=== PATIENT | female | born 1990 | race African-American/Black ===

== ENCOUNTER → 2018-11-16 16:21 | Outpatient (CLI) | payer OTHER, SELFPAY ==
--- NOTE | 2018-11-16 16:25 | DI.MRI.S_ITS ---
PROCEDURE: MR HEAD/BRAIN WO/W CON INDICATIONS: ABNORMAL FINDINGS ON DIAGNOSTIC IMAGING, MIGRAINES. TECHNIQUE: Noncontrast axial T1 spin echo, axial T2 fast spin echo, sagittal and axial FLAIR, coronal T2 fast spin echo, axial gradient echo, axial diffusion and ADC through the brain. After the administration of contrast, axial and coronal 3D VIBE or T1 spin echo with fat saturation through the brain. COMPARISON: Outside Facility, RG, MRI HEAD W/O CONTRAST, 12/22/2017, 15:15. Outside Facility, RG, MRI HEAD W/WO CONTRAST, 01/15/2018, 19:33. FINDINGS: Image quality: Excellent. CSF Spaces: Basal cisterns are patent. No extra-axial fluid collections. Ventricles are normal in size and shape. Brain: No midline shift. No intracranial bleeds or masses. No abnormal intracranial enhancement. The brainstem appears normal. Diffusion-weighted images demonstrate no acute ischemic insults. No chronic ischemic insults. Normal intravascular flow voids are present. Skull and face: Calvarial marrow is normal in signal. Orbits appear normal. Sinuses: Sinuses and mastoids appear clear. IMPRESSION: Normal examination, no area of the prior ischemic injury or trauma is suspected. No contrast enhancing abnormality found. Flair imaging pulse sequence appears normal bilaterally, without evidence of underlying multiple sclerosis or other white matter disease process. The ventricles are normal in size, and overall the study does not identify a source of current symptoms. Dictated by: Colby Escalante M.D. on 11/21/2018 at 15:17 Approved by: Colby Escalante M.D. on 11/21/2018 at 15:20
== END ==
PROVIDERS: Visit Provider Registered Nurse Diabetes Educator
DX: G43.909 Migraine, unspecified, not intractable, without status migrainosus (principal); R93.0 Abnormal findings on diagnostic imaging of skull and head, not elsewhere classified
CPT/HCPCS: 70553; A9579

== ENCOUNTER 2019-02-24 15:03 | Emergency (ER) | payer OTHER, SELFPAY ==
--- NOTE | 2019-02-24 15:07 | ED.LOWEXIN ---
HPI - Extremity Injury (Lower) <Chloe Quach PA-C - Last Filed: 02/24/19 16:54> General Chief Complaint: Extremity Injury, Lower Stated Complaint: left knee pain Time Seen by Provider: 02/24/19 15:07 Source: patient Mode of arrival: ambulatory Limitations: no limitations History of Present Illness HPI Narrative: This healthy 29-year-old female comes to ED secondary to left knee pain. She was running fast playing kickball when she slid to a stop and had pivoted backwards but pitched forward onto the left knee. She states that she had pain right away, has not noted swelling. She does not have pain when not bearing weight. She cannot tell whether any instability. She denies hitting her head, LOC, or other known injury. She did note some pain in the left wrist/forearm area when pushing off of her fingers to move on the gurney, not consistent. She denies possibility of , no male partners. Related Data Allergies Allergy/AdvReac Type Severity Reaction Status Date / Time Penicillins Allergy Intermediate Hives Verified 02/24/19 15:14 Review of Systems <Chloe Quach PA-C - Last Filed: 02/24/19 16:54> Review of Systems ROS Unobtainable: All systems reviewed & are unremarkable except as noted in HPI and below PFSH <Chloe Quach PA-C - Last Filed: 02/24/19 16:54> Medical History (Updated 02/24/19 @ 16:04 by Chloe Quach PA-C) Chronic insomnia (Chronic) Anemia (Chronic) Migraine headache (Chronic) Surgical History (Updated 02/24/19 @ 15:29 by Chloe Quach PA-C) No history of previous surgery (Chronic) Social History Smoking Status: Never smoker Social History Smoking Status: Never smoker Exam <Chloe Quach PA-C - Last Filed: 02/24/19 16:54> Narrative Exam Narrative: GENERAL APPEARANCE: Patient sitting comfortably, in no distress. LUNGS: Clear to auscultation bilaterally. HEART: Rate and rhythm regular without murmur, normal S1 and S2, no S3 or S4. MUSCULOSKELETAL: Left knee no effusion, mild tenderness to palpation medial to the patella, no tenderness elsewhere over the bony prominences or soft tissue. She is able to fully extend with some tenderness. Able to flex to 90?. No clear laxity been unable to tolerate full stress testing secondary to tenderness. No tenderness about the lower leg or ankle. No point tenderness over the left hand, wrist, or forearm pain. Minimal tenderness over the left elbow ulnar groove that is not reproducible. Full range of motion throughout the left upper extremity without tenderness. NEUROVASCULAR: Left lower extremity sensation grossly intact, foot is warm, PT and DP pulses 2+ Initial Vital Signs Initial Vital Signs: Vital Signs Temperature 98.3 F 02/24/19 15:10 Pulse Rate 96 H 02/24/19 15:10 Respiratory Rate 18 02/24/19 15:10 Blood Pressure 135/91 H 02/24/19 15:10 Pulse Oximetry 100 02/24/19 15:10 <DO Leigha Issa Last Filed: 02/24/19 17:18> Initial Vital Signs Initial Vital Signs: Vital Signs Temperature 98.3 F 02/24/19 15:10 Pulse Rate 96 H 02/24/19 15:10 Respiratory Rate 18 02/24/19 15:10 Blood Pressure 135/91 H 02/24/19 15:10 Pulse Oximetry 100 02/24/19 15:10 Course <Chloe Quach PA-C - Last Filed: 02/24/19 16:54> Orders Ordered: ED Orders 02/24/19 15:15 XR knee LT 3V Stat Vital Signs - 8 hr 02/24/19 15:10 02/24/19 16:26 Temperature 98.3 F Pulse Rate 96 H 79 Respiratory Rate 18 16 Blood Pressure 135/91 H Blood Pressure [Left Arm] 119/80 Pulse Oximetry 100 100 <DO Leigha Issa Last Filed: 02/24/19 17:18> Orders Ordered: ED Orders 02/24/19 15:15 XR knee LT 3V Stat Vital Signs - 8 hr 02/24/19 15:10 02/24/19 16:26 Temperature 98.3 F Pulse Rate 96 H 79 Respiratory Rate 18 16 Blood Pressure 135/91 H Blood Pressure [Left Arm] 119/80 Pulse Oximetry 100 100 MDM - Extremity Injury (Lower) <Chloe Quach PA-C - Last Filed: 02/24/19 16:54> Imaging Data knee: Radiologist's impression: [address] [address] XRay Report Signed Patient: YEE OVIEDO#: [id number] : 1990Acct:[id number] Age/Sex: 29 / FDate of Service: 02/24/19 Loc: ED Accession Number: [id number] Procedure: XR knee LT 3V Ordering Provider: Chloe Quach P.A-C PROCEDURE: XR KNEE LT 3V INDICATIONS: fall, pain (medial) TECHNIQUE: 3 views of the knee were acquired. COMPARISON: None. FINDINGS: Bones: No fractures or dislocations. No suspicious bony lesions. Soft tissues: No joint effusion. No suspicious soft tissue calcifications. IMPRESSION: No acute radiographic findings. If pain persists, repeat imaging in 5-7 days is recommended to exclude occult fracture at the time of the study. Dictated by: Lydia Gregorio M.D. on 02/24/2019 at 14:31 Approved by: Lydia Gregorio M.D. on 02/24/2019 at 14:32 Discharge Plan Departure Patient Disposition: Home Clinical Impression: Internal derangement of knee Qualifiers: Laterality: left Qualified Code(s): M23.92 - Unspecified internal derangement of left knee Discharge Date/Time: 02/24/19 16:31 Interventions: ED Discharge Assessment Last Done: 02/24/19 16:31 Instructions: DI for Knee Sprain, DI for Knee Pain Activity Restrictions/Additional Instructions: Please return as we discussed if you have any acutely worsening symptoms. Otherwise, use the knee immobilizer to help with pain and stability when you are walking. Gentle walking on flat ground is okay as you tolerate, but when you are sitting rest the knee, elevate. Continue ice as needed. Continue ibuprofen, 800 mg every 8 hours to help with pain and swelling and add Tylenol in addition as needed. Please see your PCP in the next few days for reassessment to evaluate your progress and determine whether any further testing or referral are needed. I think that you have a soft tissue injury to tendon or ligament which can be a simple sprain that may heal on its own, or sometimes these require further treatment with PT or orthopedics for more complex tears. Referrals: Gregorio Roger, EMPLOYMENT ASSISTANT [Non-Staff] - Stand Alone Forms: Work Release Note <Misha Harden DO - Last Filed: 02/24/19 17:18> Cosign ED Attending Cosjimenezature Attestation: I was immediately available in the department for consultation. Documentation has been reviewed. I agree with assessment and plan.
[2019-02-24 15:10] VITALS: BP 135/91; PULSE 96; RESP 18; TEMP 36.8; O2SAT 100; BMI 33.8
--- NOTE | 2019-02-24 15:15 | DI.RAD.S_ITS ---
PROCEDURE: XR KNEE LT 3V INDICATIONS: fall, pain (medial) TECHNIQUE: 3 views of the knee were acquired. COMPARISON: None. FINDINGS: Bones: No fractures or dislocations. No suspicious bony lesions. Soft tissues: No joint effusion. No suspicious soft tissue calcifications. IMPRESSION: No acute radiographic findings. If pain persists, repeat imaging in 5-7 days is recommended to exclude occult fracture at the time of the study. Dictated by: Lydia Gregorio M.D. on 02/24/2019 at 14:31 Approved by: Lydia Gregorio M.D. on 02/24/2019 at 14:32
--- NOTE | 2019-02-24 15:24 | ED_ITS ---
HPI - Extremity Injury (Lower) <Chloe Quach PA-C - Last Filed: 02/24/19 16:54> General Chief Complaint: Extremity Injury, Lower Stated Complaint: left knee pain Time Seen by Provider: 02/24/19 15:07 Source: patient Mode of arrival: ambulatory Limitations: no limitations History of Present Illness HPI Narrative: This healthy 29-year-old female comes to ED secondary to left knee pain. She was running fast playing kickball when she slid to a stop and had pivoted backwards but pitched forward onto the left knee. She states that she had pain right away, has not noted swelling. She does not have pain when not bearing weight. She cannot tell whether any instability. She denies hitting her head, LOC, or other known injury. She did note some pain in the left wrist/forearm area when pushing off of her fingers to move on the gurney, not consistent. She denies possibility of , no male partners. Related Data Allergies Allergy/AdvReac Type Severity Reaction Status Date / Time Penicillins Allergy Intermediate Hives Verified 02/24/19 15:14 Review of Systems <Chloe Quach PA-C - Last Filed: 02/24/19 16:54> Review of Systems ROS Unobtainable: All systems reviewed & are unremarkable except as noted in HPI and below PFSH <Chloe Quach PA-C - Last Filed: 02/24/19 16:54> Medical History (Updated 02/24/19 @ 16:04 by Chloe Quach PA-C) Chronic insomnia (Chronic) Anemia (Chronic) Migraine headache (Chronic) Surgical History (Updated 02/24/19 @ 15:29 by Chloe Quach PA-C) No history of previous surgery (Chronic) Social History Smoking Status: Never smoker Social History Smoking Status: Never smoker Exam <Chloe Quach PA-C - Last Filed: 02/24/19 16:54> Narrative Exam Narrative: GENERAL APPEARANCE: Patient sitting comfortably, in no distress. LUNGS: Clear to auscultation bilaterally. HEART: Rate and rhythm regular without murmur, normal S1 and S2, no S3 or S4. MUSCULOSKELETAL: Left knee no effusion, mild tenderness to palpation medial to the patella, no tenderness elsewhere over the bony prominences or soft tissue. She is able to fully extend with some tenderness. Able to flex to 90?. No clear laxity been unable to tolerate full stress testing secondary to tenderness. No tenderness about the lower leg or ankle. No point tenderness over the left hand, wrist, or forearm pain. Minimal tenderness over the left elbow ulnar groove that is not reproducible. Full range of motion throughout the left upper extremity without tenderness. NEUROVASCULAR: Left lower extremity sensation grossly intact, foot is warm, PT and DP pulses 2+ Initial Vital Signs Initial Vital Signs: Vital Signs Temperature 98.3 F 02/24/19 15:10 Pulse Rate 96 H 02/24/19 15:10 Respiratory Rate 18 02/24/19 15:10 Blood Pressure 135/91 H 02/24/19 15:10 Pulse Oximetry 100 02/24/19 15:10 <DO Leigha Issa Last Filed: 02/24/19 17:18> Initial Vital Signs Initial Vital Signs: Vital Signs Temperature 98.3 F 02/24/19 15:10 Pulse Rate 96 H 02/24/19 15:10 Respiratory Rate 18 02/24/19 15:10 Blood Pressure 135/91 H 02/24/19 15:10 Pulse Oximetry 100 02/24/19 15:10 Course <Chloe Quach PA-C - Last Filed: 02/24/19 16:54> Orders Ordered: ED Orders 02/24/19 15:15 XR knee LT 3V Stat Vital Signs - 8 hr 02/24/19 15:10 02/24/19 16:26 Temperature 98.3 F Pulse Rate 96 H 79 Respiratory Rate 18 16 Blood Pressure 135/91 H Blood Pressure [Left Arm] 119/80 Pulse Oximetry 100 100 <DO Leigha Issa Last Filed: 02/24/19 17:18> Orders Ordered: ED Orders 02/24/19 15:15 XR knee LT 3V Stat Vital Signs - 8 hr 02/24/19 15:10 02/24/19 16:26 Temperature 98.3 F Pulse Rate 96 H 79 Respiratory Rate 18 16 Blood Pressure 135/91 H Blood Pressure [Left Arm] 119/80 Pulse Oximetry 100 100 MDM - Extremity Injury (Lower) <Chloe Quach PA-C - Last Filed: 02/24/19 16:54> Imaging Data knee: Radiologist's impression: [address] [address] XRay Report Signed Patient: YEE OVIEDO#: [id number] : 1990Acct:[id number] Age/Sex: 29 / FDate of Service: 02/24/19 Loc: ED Accession Number: [id number] Procedure: XR knee LT 3V Ordering Provider: Chloe Quach P.A-C PROCEDURE: XR KNEE LT 3V INDICATIONS: fall, pain (medial) TECHNIQUE: 3 views of the knee were acquired. COMPARISON: None. FINDINGS: Bones: No fractures or dislocations. No suspicious bony lesions. Soft tissues: No joint effusion. No suspicious soft tissue calcifications. IMPRESSION: No acute radiographic findings. If pain persists, repeat imaging in 5-7 days is recommended to exclude occult fracture at the time of the study. Dictated by: Lydia Gregorio M.D. on 02/24/2019 at 14:31 Approved by: Lydia Gregorio M.D. on 02/24/2019 at 14:32 Discharge Plan Departure Patient Disposition: Home Clinical Impression: Internal derangement of knee Qualifiers: Laterality: left Qualified Code(s): M23.92 - Unspecified internal derangement of left knee Discharge Date/Time: 02/24/19 16:31 Interventions: ED Discharge Assessment Last Done: 02/24/19 16:31 Instructions: DI for Knee Sprain, DI for Knee Pain Activity Restrictions/Additional Instructions: Please return as we discussed if you have any acutely worsening symptoms. Otherwise, use the knee immobilizer to help with pain and stability when you are walking. Gentle walking on flat ground is okay as you tolerate, but when you are sitting rest the knee, elevate. Continue ice as needed. Continue ibuprofen, 800 mg every 8 hours to help with pain and swelling and add Tylenol in addition as needed. Please see your PCP in the next few days for reassessment to evaluate your progress and determine whether any further testing or referral are needed. I think that you have a soft tissue injury to tendon or ligament which can be a simple sprain that may heal on its own, or sometimes these require further treatment with PT or orthopedics for more complex tears. Referrals: Gregorio Roger, [employer] PA[employer]KER [Non-Staff] - Stand Alone Forms: Work Release Note <Misha Harden DO - Last Filed: 02/24/19 17:18> Cosign ED Attending Cosjimenezature Attestation: I was immediately available in the department for consultation. Documentation has been reviewed. I agree with assessment and plan.
[2019-02-24 16:26] VITALS: BP 119/80; PULSE 79; RESP 16; O2SAT 100
== END 2019-02-24 16:31 | disposition home or self-care (01) ==
PROVIDERS: Emergency Provider Internal Medicine
DX: M23.92 Unspecified internal derangement of left knee (principal); W19.XXXA Unspecified fall, initial encounter; Y93.69 Activity, other involving other sports and athletics played as a team or group
CPT/HCPCS: 73562; 99283

== ENCOUNTER 2020-01-05 01:49 | Emergency (ER) | payer OTHER, SELFPAY ==
[2020-01-05 01:59] VITALS: BP 99/69; PULSE 114; RESP 19; TEMP 36.9; O2SAT 100; BMI 33.6
--- NOTE | 2020-01-05 02:00 | ED.GENADULT ---
HPI - General Adult General Chief complaint: Toxicology Problem Stated complaint: vomiting since yesterday Time Seen by Provider: 01/05/20 02:00 History of Present Illness HPI narrative: 29-year-old woman with history of migraine headaches who was celebrating her birthday coming up in 2 days with 8 shots of Tequila and 2 margaritas. She began throwing up shortly after consuming alcohol and is continued to vomit and have dry heaves for the last 6 hours. There has not been no blood in the emesis and no diarrhea. She has not been ill recently. She does not typically drink much alcohol. Denies alcohol marijuana opiates methamphetamine and cocaine. Related Data Home Medications Medication Instructions Recorded Confirmed amitriptyline 01/05/20 Allergies Allergy/AdvReac Type Severity Reaction Status Date / Time Penicillins Allergy Intermediate Hives Verified 01/05/20 02:03 Review of Systems Review of Systems Narrative: Review of systems is limited by the patient's medical condition however her notes that she has not had fevers, cough, chills, abdominal pain, chest pain, palpitations, lower extremity edema, skin rashes or unexpected weight changes recently. Patient History Medical History Anemia (Chronic) Chronic insomnia (Chronic) Migraine headache (Chronic) Surgical History No history of previous surgery (Chronic) Social History Smoking Status: Never smoker Smoking Status: Never smoker alcohol intake frequency: a few times a month Substance Use Type: does not use Exam Narrative Exam Narrative: General: Healthy appearing, continuing to vomit throughout our exam and history taking. Well-nourished well-developed HEENT: Moist mucous membranes, normal sclera with reactive pupils, Neck: supple Respiratory: Lungs are clear to auscultation, no wheezing no rales no rhonchi. Full and symmetrical air movement Cardiac: Mild tachycardia with Regular rate and rhythm no murmurs no bruits Abdomen: Soft nontender good bowel tones, no flank pain Skin: Warm and dry, no rashes Neurologic: Grossly neurologically intact with no obvious asymmetries or abnormalities Extremities: No trauma, well perfused Psych: Moderately intoxicated Initial Vital Signs Initial Vital Signs: Vital Signs Temperature 98.4 F 01/05/20 01:59 Pulse Rate 114 H 01/05/20 01:59 Respiratory Rate 19 01/05/20 01:59 Blood Pressure 99/69 01/05/20 01:59 Pulse Oximetry 100 01/05/20 01:59 Course Orders Ordered: ED Orders 01/05/20 02:05 Complete Blood Count AUTO DIFF Stat Comprehensive Metabolic Panel Stat Ethanol (ETOH) Stat Discontinued Medications Sodium Chloride (Normal Saline 0.9%) 1,000 mls @ 1,000 mls/hr IV BOLUS ONE Stop: 01/05/20 02:59 Last Infusion: 01/05/20 03:08 Dose: 0 mls/hr Documented by: Admin: 01/05/20 02:08 Dose: 1,000 mls/hr Documented by: ROLA Sodium Chloride (Normal Saline 0.9%) 1,000 mls @ 1,000 mls/hr IV BOLUS ONE Stop: 01/05/20 03:32 Last Admin: 01/05/20 02:54 Dose: 1,000 mls/hr Documented by: ROLA Metoclopramide HCl (Reglan) 10 mg IV NOW ONE Stop: 01/05/20 03:40 Last Admin: 01/05/20 03:43 Dose: 10 mg Documented by: EVIN Ondansetron HCl (Zofran) 4 mg IV NOW ONE Stop: 01/05/20 02:01 Last Admin: 01/05/20 02:08 Dose: 4 mg Documented by: ROLA Vital Signs Vital signs: Vital Signs - 8 hr 01/05/20 01:59 01/05/20 02:14 01/05/20 02:38 Temperature 98.4 F Pulse Rate 114 H 94 H 101 H Respiratory Rate 19 18 15 Blood Pressure 99/69 Blood Pressure [Left Arm] 116/67 Blood Pressure [Left Wrist] 125/76 Pulse Oximetry 100 99 99 01/05/20 03:00 Temperature Pulse Rate Respiratory Rate Blood Pressure Blood Pressure [Left Arm] 120/69 Blood Pressure [Left Wrist] Pulse Oximetry Medical Decision Making Medical Records Medical records reviewed: Yes I reviewed the patient's medical records. Lab Data Lab results reviewed: Yes I reviewed the patient's lab results. Result diagrams: 01/05/20 02:05 01/05/20 02:05 Labs: Lab Results 01/05/20 01/05/20 01/05/20 Range/Units 02:05 02:05 02:05 WBC 10.0 (4.5-11.0) X10^3/uL RBC 5.70 H (4.0-5.2) X10^6/uL Hgb 12.7 (12.0-16.0) g/dL Hct 39.4 (36-46) % MCV 69.1 L (80-100) fL MCH 22.3 L (26-34) PG MCHC 32.3 (30-36) % RDW 14.4 (11.6-14.8) % Plt Count 222 (150-400) X10^3/uL Neut % (Auto) 73.9 (50-75) % Lymph % (Auto) 20.1 L (25-40) % Mellette % (Auto) 5.5 (3-14) % Eos % (Auto) 0.1 L (2-4) % Baso % (Auto) 0.4 (0-2) % Neut # (Auto) 7400 H (3070-4982) /uL Lymph # (Auto) 2000 (2482-2618) /uL Mellette # (Auto) 500 (0-900) /uL Eos # (Auto) 0 (0-450) /uL Baso # (Auto) 0 (0-100) /uL RBC Morphology See below Microcytosis 1+ H Sodium 141 (137-145) mmol/L Potassium 4.2 (3.4-5.1) mmol/L Chloride 105 (98-107) mmol/L Carbon Dioxide 20 L (22-32) mmol/L BUN 8 (7-17) mg/dL Creatinine 0.84 (0.52-1.04) mg/dL Estimated GFR > 60.0 (>60) mL/min BUN/Creatinine Ratio 9.5 (6-22) Glucose 123 H (70-100) mg/dL Calcium 9.9 (8.4-10.2) mg/dL Total Bilirubin 0.5 (0.2-1.3) mg/dL AST 29 (14-36) IU/L ALT 22 (<35) IU/L Alkaline Phosphatase 80 (38-126) U/L Total Protein 8.7 H (6.3-8.2) g/dL Albumin 4.7 (3.5-5.0) g/dL Globulin 4.0 (1.7-4.1) g/dL Albumin/Globulin Ratio 1.2 (1.0-2.8) Ethyl Alcohol 55 H ( - 10) mg/dL MDM Narrative Medical decision making narrative: Significant persistent nausea and vomiting after too much alcohol. Alcohol level is only at 55. No significant abnormalities on lab work. Safe for home discharge once nausea is better controlled. Discharge Plan Departure Patient Disposition: Home Clinical Impression: Alcoholic intoxication Qualifiers: Complication of substance-induced condition: uncomplicated Qualified Code(s): F10.920 - Alcohol use, unspecified with intoxication, uncomplicated Instructions: DI for Alcohol Poisoning Activity Restrictions/Additional Instructions: Your alcohl level was 55 on arrival in the ER. The legal limit is 80. In the ER, you recieved a liter of fluid and nausea medication. This level of drinking is dangerous to your health. You got shaylee tonight and have friends that cared enough to make sure you were safe. Responsible drinking is considered 1 drink a day and no more than 7 drinks a week for women. More than this is considered risky drinking and can lead to alcohol use disorder. If you feel that you can not stop drinking or are concerned that you may have, or are developing, alcohol use disorder, please talk about this with your primary care doctor. I hope you feel better. Happy Birthday a day early! Prescriptions: No Action amitriptyline RF: 0
[2020-01-05] MEDS: SODIUM CHLORIDE 0.9% 1,000 ML 1000 ML IV ×2 (02:08→02:54)
[2020-01-05] MEDS: ONDANSETRON 4 MG/2 ML INJ IV (02:08)
[2020-01-05 02:11] LABS: Add Manual Diff / Slide Review NO; Basophils Absolute Auto 0 /uL (0-100); Basophils Percent Auto 0.4 % (0-2); Eosinophils Absolute Auto 0 /uL (0-450); Eosinophils Percent Auto 0.1 % (2-4); Hematocrit 39.4 % (36-46); Hemoglobin 12.7 g/dL (12.0-16.0); Lymphocytes Absolute Auto 2000 /uL (1100-4500); Lymphocytes Percent Auto 20.1 % (25-40); Mean Corpuscular HGB Conc 32.3 % (30-36); Mean Corpuscular Hemoglobin 22.3 PG (26-34); Mean Corpuscular Volume 69.1 fL (80-100); Monocytes Absolute Auto 500 /uL (0-900); Monocytes Percent Auto 5.5 % (3-14); Neutrophils Absolute Auto 7400 /uL (1500-7000); Neutrophils Percent Auto 73.9 % (50-75); Platelet Count 222 X10^3/uL (150-400); Red Cell Distribution Width 14.4 % (11.6-14.8)
--- NOTE | 2020-01-05 02:12 | PC.NURSE ---
Spouse states Pt has had multiple drinks yesterday, last drink was about 1430, had multiple shots of tequila and a couple of margaritas, started throwing about 1500, spouse states non stop since then. Denies any diarrhea. Spouse reports pt doesn't normally drink frequently and heavily.
[2020-01-05 02:14] VITALS: BP 125/76; PULSE 94; RESP 18; O2SAT 99
[2020-01-05 02:22] LABS: Alanine Aminotransferase 22 IU/L (<35); Albumin 4.7 g/dL (3.5-5.0); Albumin Globulin Ratio 1.2 (1.0-2.8); Alkaline Phosphatase 80 U/L (38-126); Aspartate Aminotransferase 29 IU/L (14-36); BUN Creatinine Ratio 9.5 (6-22); Bilirubin Total 0.5 mg/dL (0.2-1.3); Blood Urea Nitrogen 8 mg/dL (7-17); Calcium 9.9 mg/dL (8.4-10.2); Carbon Dioxide 20 mmol/L (22-32); Chloride 105 mmol/L (98-107); Estimated Glomerular Filt Rate > 60.0 mL/min (>60); Glucose 123 mg/dL (70-100); HEMOLYSIS < 15 (0-50); Potassium 4.2 mmol/L (3.4-5.1); Sodium 141 mmol/L (137-145); Total Protein 8.7 g/dL (6.3-8.2)
[2020-01-05 02:23] LABS: Ethanol (ETOH) 55 mg/dL
[2020-01-05 02:38] VITALS: BP 116/67; PULSE 101; RESP 15; O2SAT 99
[2020-01-05 02:45] LABS: Microcytosis 1+
[2020-01-05 03:00] VITALS: BP 120/69
[2020-01-05] MEDS: METOCLOPRAMIDE 10 MG/2 ML INJ IV (03:43)
[2020-01-05 04:53] VITALS: BP 112/68; PULSE 91; RESP 16; O2SAT 100
== END 2020-01-05 05:16 | disposition home or self-care (01) ==
PROVIDERS: Emergency Provider Emergency Medicine
DX: F10.920 Alcohol use, unspecified with intoxication, uncomplicated (principal); R11.2 Nausea with vomiting, unspecified
CPT/HCPCS: 36415; 80053; 80320; 85025; 96361; 96374; 96375; 99284; J2405; J2765

== ENCOUNTER 2020-11-24 11:02 | Emergency (ER) | payer OTHER, SELFPAY ==
[2020-11-24] VITALS (7 sets, daily range): BP systolic 117–134; BP diastolic 74–81; PULSE 67–91; RESP 14–23; TEMP 36.8; O2SAT 97–100; BMI 34.0
--- NOTE | 2020-11-24 11:05 | DI.RAD.S_ITS ---
PROCEDURE: XR CHEST 1V INDICATIONS: chest pain TECHNIQUE: One view of the chest was acquired. COMPARISON: None. FINDINGS: Surgical changes and devices: None. Lungs and pleura: Lungs are clear. No pleural effusions or pneumothorax. Mediastinum: Mediastinal contours appear normal. Heart size is normal. Bones and chest wall: No suspicious bony lesions. Overlying soft tissues appear unremarkable. IMPRESSION: Normal for age, source of current chest pain symptoms is not seen. Dictated by: Colby Escalante M.D. on 11/24/2020 at 11:50 Approved by: Colby Escalante M.D. on 11/24/2020 at 11:50
[2020-11-24 11:31] LABS: Add Manual Diff / Slide Review NO; Basophils Absolute Auto 100 /uL (0-100); Basophils Percent Auto 0.8 % (0-2); Eosinophils Absolute Auto 100 /uL (0-450); Eosinophils Percent Auto 1.7 % (2-4); Hematocrit 37.9 % (36-46); Lymphocytes Absolute Auto 3100 /uL (1100-4500); Lymphocytes Percent Auto 45.8 % (25-40); Mean Corpuscular HGB Conc 31.5 % (30-36); Mean Corpuscular Hemoglobin 21.6 PG (26-34); Mean Corpuscular Volume 68.6 fL (80-100); Monocytes Absolute Auto 700 /uL (0-900); Neutrophils Absolute Auto 2700 /uL (1500-7000); Neutrophils Percent Auto 40.7 % (50-75); Platelet Count 203 X10^3/uL (150-400); Red Blood Cell Count 5.53 X10^6/uL (4.0-5.2); Red Cell Distribution Width 15.2 % (11.6-14.8); White Blood Cell Count 6.7 X10^3/uL (4.5-11.0)
[2020-11-24 11:36] LABS: INR 1.1 (0.9-1.3); Prothrombin Time 12.9 SECONDS (10.1-12.7)
[2020-11-24 11:38] LABS: PTT Partial Thromboplastin Tim 37 SECONDS (26.4-36.2)
[2020-11-24 11:42] LABS: Alanine Aminotransferase 15 IU/L (<35); Albumin 4.3 g/dL (3.5-5.0); Albumin Globulin Ratio 1.2 (1.0-2.8); Alkaline Phosphatase 56 U/L (38-126); Aspartate Aminotransferase 25 IU/L (14-36); BUN Creatinine Ratio 10.6 (6-22); Bilirubin Total 0.3 mg/dL (0.2-1.3); Blood Urea Nitrogen 9 mg/dL (7-17); Carbon Dioxide 23 mmol/L (22-32); Chloride 107 mmol/L (98-107); Creatine Kinase 146 U/L (30-135); Estimated Glomerular Filt Rate > 60.0 mL/min (>60); Globulin 3.5 g/dL (1.7-4.1); Glucose 93 mg/dL (70-100); HEMOLYSIS < 15 (0-50); Lipase 58 U/L (23-300); Potassium 3.8 mmol/L (3.4-5.1); Sodium 139 mmol/L (137-145); Total Protein 7.8 g/dL (6.3-8.2)
[2020-11-24 11:54] LABS: Troponin I < 0.012 ng/mL (0.01-0.034)
[2020-11-24 11:59] LABS: CKMB % Relative Index 0.2 % (1.5-5.0); Creatine Kinase MB < 0.22 ng/mL (<2.37)
--- NOTE | 2020-11-24 12:13 | ED_ITS ---
HPI - Chest Pain General Chief Complaint: Chest Pain Stated Complaint: PAIN IN RIGHT SIDE OF CHEST, GOING DOWN ARM Time Seen by Provider: 11/24/20 12:13 Source: patient Mode of arrival: Ambulatory Limitations: no limitations History of Present Illness HPI narrative: Otherwise healthy 30-year-old woman with acute right upper chest wall pain noticed today. Not associated with diaphoresis or dyspnea. She notes that it is worse with using her arms including her left arm slightly worse with deep breathing and reproducible with palpation in the upper anterior chest wall. Related Data Home Medications Medication Instructions Recorded Confirmed amitriptyline 01/05/20 Allergies Allergy/AdvReac Type Severity Reaction Status Date / Time Penicillins Allergy Intermediate Hives Verified 11/24/20 11:19 Review of Systems Review of Systems Narrative: Pertinent positive and negative findings as per HPI Remainder of review of systems is otherwise unremarkable for Constitutional: Fevers, chills, weakness ENT: No sore throat, neck pain, CV: palpitations, dyspnea on exertion Respiratory: Cough, wheeze, dyspnea GI: Nausea, vomiting, diarrhea, : Dysuria, hematuria, flank pain MS: Muscle weakness, numbness, joint swelling or warmth Skin: Rashes, Patient History Medical History Anemia Chronic insomnia Migraine headache Surgical History No history of previous surgery Social History Smoking Status: Never smoker Smoking Status: Never smoker alcohol intake frequency: a few times a month Alcohol type: hard liquor Substance Use Type: does not use Exam Narrative Exam Narrative: General: Healthy appearing, in no acute distress. Able to give a complete and coherent history. Well-nourished well-developed HEENT: Moist mucous membranes, normal sclera with reactive pupils, Respiratory: Lungs are clear to auscultation, no wheezing no rales no rhonchi. Full and symmetrical air movement Chest: Reproducible pain anterior right chest wall into right costochondral border Cardiac: Regular rate and rhythm no murmurs no bruits Abdomen: Soft, nontender, good bowel tones, no flank pain Skin: Warm and dry, no rashes Neurologic: Grossly neurologically intact with no obvious asymmetries or abnormalities Extremities: No trauma, well perfused Psych: Cooperative, appropriate insight and affect Initial Vital Signs Initial Vital Signs: Vital Signs Temperature 98.2 F 11/24/20 11:05 Pulse Rate 91 H 11/24/20 11:05 Respiratory Rate 14 11/24/20 11:05 Blood Pressure 134/81 11/24/20 11:05 Pulse Oximetry 99 11/24/20 11:05 Course Orders Ordered: ED Orders 11/24/20 11:05 XR chest 1V Stat 11/24/20 11:06 EKG-12 Lead Stat 11/24/20 11:10 Complete Blood Count AUTO DIFF Stat Comprehensive Metabolic Panel Stat Lipase Stat Partial Thromboplastin Time Stat Prothrombin Time INR Stat Troponin & CK Cardiac Panel Stat Discontinued Medications Ketorolac Tromethamine (Ketorolac 60 Mg/2 Ml Vial) 15 mg IV NOW ONE Stop: 11/24/20 12:25 Last Admin: 11/24/20 12:28 Dose: 15 mg Documented by: DONOTEM Vital Signs Vital signs: Vital Signs - 8 hr 11/24/20 11:05 11/24/20 11:07 11/24/20 11:30 Temperature 98.2 F Pulse Rate 91 H 87 73 Respiratory Rate 14 23 Blood Pressure 134/81 134/81 117/80 Pulse Oximetry 99 99 97 11/24/20 12:00 11/24/20 12:30 11/24/20 13:00 Temperature Pulse Rate 70 67 Respiratory Rate 17 19 16 Blood Pressure 118/78 122/74 122/77 Pulse Oximetry 99 99 98 MDM - Chest Pain Medical Records Data Attestation: I reviewed the patient's medical records. Lab Data Attestation: I reviewed the patient's lab results. Result diagrams: 11/24/20 11:10 11/24/20 11:10 Labs: Lab Results 11/24/20 11/24/20 11/24/20 Range/Units 11:10 11:10 11:10 WBC 6.7 (4.5-11.0) X10^3/uL RBC 5.53 H (4.0-5.2) X10^6/uL Hgb 12.0 (12.0-16.0) g/dL Hct 37.9 (36-46) % MCV 68.6 L (80-100) fL MCH 21.6 L (26-34) PG MCHC 31.5 (30-36) % RDW 15.2 H (11.6-14.8) % Plt Count 203 (150-400) X10^3/uL Neut % (Auto) 40.7 L (50-75) % Lymph % (Auto) 45.8 H (25-40) % [place] % (Auto) 11.0 (3-14) % Eos % (Auto) 1.7 L (2-4) % Baso % (Auto) 0.8 (0-2) % Neut # (Auto) 2700 (3904-4201) /uL Lymph # (Auto) 3100 (3635-7220) /uL [place] # (Auto) 700 (0-900) /uL Eos # (Auto) 100 (0-450) /uL Baso # (Auto) 100 (0-100) /uL Plt Morphology Comment RBC Morphology See below PT 12.9 H (10.1-12.7) SECONDS INR 1.1 (0.9-1.3) APTT 37 H (26.4-36.2) SECONDS Sodium 139 (137-145) mmol/L Potassium 3.8 (3.4-5.1) mmol/L Chloride 107 (98-107) mmol/L Carbon Dioxide 23 (22-32) mmol/L BUN 9 (7-17) mg/dL Creatinine 0.85 (0.52-1.04) mg/dL Estimated GFR > 60.0 (>60) mL/min BUN/Creatinine Ratio 10.6 (6-22) Glucose 93 (70-100) mg/dL Calcium 10.0 (8.4-10.2) mg/dL Total Bilirubin 0.3 (0.2-1.3) mg/dL AST 25 (14-36) IU/L ALT 15 (<35) IU/L Alkaline Phosphatase 56 (38-126) U/L Total Creatine Kinase 146 H (30-135) U/L CK-MB (CK-2) < 0.22 (<2.37) ng/mL CK-MB (CK-2) Rel Index 0.2 L (1.5-5.0) % Troponin I < 0.012 (0.01-0.034) ng/mL Total Protein 7.8 (6.3-8.2) g/dL Albumin 4.3 (3.5-5.0) g/dL Globulin 3.5 (1.7-4.1) g/dL Albumin/Globulin Ratio 1.2 (1.0-2.8) Lipase 58 (23-300) U/L Imaging Data Chest x-ray: Radiologist's Impression: FINDINGS: Surgical changes and devices: None. Lungs and pleura: Lungs are clear. No pleural effusions or pneumothorax. Mediastinum: Mediastinal contours appear normal. Heart size is normal. Bones and chest wall: No suspicious bony lesions. Overlying soft tissues appear unremarkable. IMPRESSION: Normal for age, source of current chest pain symptoms is not seen. Dictated by: Colby Escalante M.D. on 11/24/2020 at 11:50 MDM Narrative Medical decision making narrative: 30-year-old woman with acute onset sharp pain right anterior chest, reproducible with palpation and positioning. Workup is unremarkable and pain has resolved nicely with Toradol. No evidence for pneumothorax, infection, acute coronary syndrome, pulmonary embolism or other life-threatening etiology at this time. She is safe for home discharge Discharge Plan Departure Patient Disposition: Home Clinical Impression: Chest pain, musculoskeletal Instructions: DI for Musculoskeletal Pain Activity Restrictions/Additional Instructions: You for coming in today Your workup, physical exam and chest x-ray were all very reassuring. There is no suggestion of heart attack, infection, collapsed lung, or other significant abnormalities . Your pain improved with IV Toradol. I suspect that this is musculoskeletal chest pain and will likely resolve by itself however, you may noticed that it hurts at least this bad tomorrow as well. Using 400 mg of ibuprofen (2 [id number] pills) and 1 Tylenol every 6 hours can be very helpful in controlling pain. If you find things are getting worse or changing, your welcome to return to the emergency department Prescriptions: No Action amitriptyline RF: 0 Referrals: Carlota Baez MD [Primary Care Provider] -
[2020-11-24] MEDS: KETOROLAC 60 MG/2 ML VIAL 15 MG IV (12:28)
== END 2020-11-24 13:47 | disposition home or self-care (01) ==
PROVIDERS: Emergency Provider Emergency Medicine; PCP Family Medicine
DX: R07.89 Other chest pain (principal)
CPT/HCPCS: 36415; 71045; 80053; 82550; 82553; 83690; 84484; 85025; 85610; 85730; 93005; 93010; 96374; 99284; J1885